=== PATIENT | male | born 1995 | race Caucasian/White ===

== ENCOUNTER 2020-11-23 22:22 | Emergency (ER) | payer OTHER ==
[~2020-11-23] VITALS: Ht 182.9 cm; Wt 75.0 kg
[2020-11-23 22:35] VITALS: BP 136/72
[2020-11-24] MEDS ORDERED: LIDOcaine 1% W/epiNEPHrine 1:200,000 10ml vial IJ ONE (00:05)
[2020-11-24] MEDS ORDERED: amox tr/potassium clavulanate 500mg/125mg TAB PO ONE (01:10)
[2020-11-24] MEDS ORDERED: AMOX-422 PO (01:52)
== END 2020-11-24 02:12 ==
LOC: ER 22:24
DX: S01.01XA Laceration without foreign body of scalp, initial encounter (principal); S61.216A Laceration without foreign body of right little finger without damage to nail, initial encounter; S47.1XXA Crushing injury of right shoulder and upper arm, initial encounter; M79.641 Pain in right hand; Z79.2 Long term (current) use of antibiotics; W54.0XXA Bitten by dog, initial encounter; Y93.89 Activity, other specified; Y92.89 Other specified places as the place of occurrence of the external cause; Y99.8 Other external cause status
CPT/HCPCS: 12004; 70450; 71046; 72125; 73060; 73130; 99285